=== PATIENT | female | born 1995 | race Caucasian/White ===

== ENCOUNTER → 2018-02-05 14:23 | Outpatient (CLI) | payer OTHER, SELFPAY ==
--- NOTE | 2018-02-05 18:21 | US_ITS ---
STUDY: ULTRASOUND TRANSVAGINAL CLINICAL: Female, 22 years old. Irregular menses TECHNIQUE: Transvaginal COMPARISON: None. FINDINGS: Normal uterine size measuring 5.8 cm in maximal craniocaudal dimension. There are no myometrial masses. Normal endometrial thickness measuring 2 mm. There are no endometrial masses, and there is no fluid in the endometrial cavity. Normal uterine cervix. Normal right ovary, measuring 2.8 x 1.7 x 1.3 cm. There are multiple follicles without a dominant cyst. Left ovary not visualized. There is no free fluid in the pelvis. Polycystic ovary disease: No. US/Transvaginal Non- IMPRESSION: Uterus and right ovary unremarkable. Left ovary not visualized. Electronically Signed: Federico Orellana DO at 21:53 EDT , Service support ,
== END ==
PROVIDERS: Family Provider Pediatrics; PCP Pediatrics; Visit Provider Obstetrics & Gynecology
DX: N92.1 Excessive and frequent menstruation with irregular cycle (principal); N93.0 Postcoital and contact bleeding
CPT/HCPCS: 76830; 87070; 87205; 93976

== ENCOUNTER → 2020-03-11 15:51 | Outpatient (CLI) | payer OTHER, SELFPAY ==
[2020-03-11 13:12] VITALS: BMI 25.7
[2020-03-17 20:44] LABS: HPV Reflexed? NOT INDICATED
== END ==
PROVIDERS: PCP Pediatrics; Referring Provider Obstetrics & Gynecology; Visit Provider Obstetrics & Gynecology
DX: Z12.4 Encounter for screening for malignant neoplasm of cervix (principal)
CPT/HCPCS: 88175; G0145

== ENCOUNTER → 2020-11-30 14:45 | Outpatient (CLI) | payer OTHER, SELFPAY ==
[2020-03-11 13:12] VITALS: BMI 25.7
== END ==
PROVIDERS: Referring Provider Nurse Practitioner Women's Health; Visit Provider Nurse Practitioner Women's Health
DX: Z20.822 Contact with and (suspected) exposure to COVID-19 (principal)
CPT/HCPCS: 87635; C9803; U0005; U0003

== ENCOUNTER 2021-12-30 16:54 | Outpatient (CLI) | payer OTHER, SELFPAY ==
[2022-01-03 12:01] LABS: Chlamydia By Nucleic Acid AMP Negative (Negative)
[2022-01-03 12:25] LABS: Gonococcus By Nucleic Acid AMP Negative (Negative)
== END 2021-12-30 23:59 | disposition home or self-care (01) ==
PROVIDERS: Visit Provider Obstetrics & Gynecology
DX: Z34.90 Encounter for supervision of normal pregnancy, unspecified, unspecified trimester (principal)
CPT/HCPCS: 87086; 87088; 87491; 87591

== ENCOUNTER → 2022-01-25 | Outpatient (CLI) | payer OTHER, SELFPAY ==
[2022-01-25 14:44] LABS: Absolute Lymphocyte Count 2.87 X10^3/uL (0.83-4.51); Absolute Neutrophil Count 7.6 X10^3/uL (2.0-7.7); Basophil# 0.04 X10^3/uL; Basophil% 0.4 % (0-1); Eosinophils% 0.9 % (0-5); Hemoglobin 12.1 g/dL (12.0-15.0); Lymphocyte # 2.87 X10^3/ul (0.83-4.51); Lymphocyte % 25.2 % (19-41); Mean Corp Hgb Conc 33.6 g/dL (32-36); Mean Corpuscular Hgb 29.9 pg (27.0-32.0); Mean Corpuscular Volume 88.9 fL (81-99); Mean Platelet Vol. 10.6 fl (6.2-12.0); Monocyte# 0.69 X10^3/uL; Monocyte% 6.1 % (0-10); NRBC Flagged by Analyzer 0 % (0-5); Neutrophil # 7.64 X10^3/uL (2.7-7.7); Neutrophil % 67.1 % (47-70); Platelet Count 263 K/mm3 (150-450); RBC Distribution Width CV 11.7 % (11.6-14.6); RBC Distribution Width SD 37.6 fl (35.1-43.9); Red Blood Count 4.05 M/mm3 (4.2-5.4); White Blood Count 11.4 K/mm3 (4.4-11.0)
[2022-01-25 15:34] LABS: NATERA MAILED SPECIMEN
[2022-01-25 16:08] LABS: HIV - WCH Non-Reactive (Nonreactive); Hepatitis B Surface Antigen Non-Reactive (Nonreactive); Hepatitis C Antibody Non-Reactive (Nonreactive); Rubella IgG Reactive (Nonreactive); Syphilis Antibodies Non-reactive
== END | disposition home or self-care (01) ==
LOC: PAVLAB 14:25
PROVIDERS: Obstetrics & Gynecology; Referring Provider Obstetrics & Gynecology; Visit Provider Obstetrics & Gynecology
DX: Z34.90 Encounter for supervision of normal pregnancy, unspecified, unspecified trimester (principal)
CPT/HCPCS: 36415; 85025; 86703; 86762; 86780; 86803; 86850; 86900; 86901; 87340

== ENCOUNTER → 2022-04-04 | Outpatient (CLI) | payer OTHER, SELFPAY ==
[2022-04-06 17:17] LABS: Toxoplasma Gondii IgG < 3.0 IU/mL (0.0-7.1)
[2022-04-13 12:39] LABS: CF, Screen Comment: (.); CMV Acute Antibody IgM < 30.0 AU/mL (0.0-29.9); Toxoplasma Gondii IgM < 3.0 AU/mL (0.0-7.9)
== END | disposition home or self-care (01) ==
PROVIDERS: Referring Provider Obstetrics & Gynecology; Visit Provider Obstetrics & Gynecology
DX: O35.8XX0 Maternal care for other (suspected) fetal abnormality and damage, not applicable or unspecified (principal); Z3A.00 Weeks of gestation of pregnancy not specified
CPT/HCPCS: 36415; 81220; 86644; 86645; 86777; 86778

== ENCOUNTER → 2022-06-02 | Outpatient (CLI) | payer OTHER, SELFPAY ==
[2022-06-02 08:45] LABS: Basophil# 0.02 X10^3/uL; Basophil% 0.2 % (0-1); Eosinophil# 0.07 X10^3/uL; Eosinophils% 0.7 % (0-5); Hematocrit 35.4 % (37-47); Hemoglobin 11.8 g/dL (12.0-15.0); Lymphocyte % 24.3 % (19-41); Mean Corp Hgb Conc 33.3 g/dL (32-36); Mean Corpuscular Hgb 30.7 pg (27.0-32.0); Mean Corpuscular Volume 92.2 fL (81-99); Mean Platelet Vol. 10.8 fl (6.2-12.0); Monocyte# 0.61 X10^3/uL; Monocyte% 5.9 % (0-10); NRBC Flagged by Analyzer 0 % (0-5); Neutrophil # 7.04 X10^3/uL (2.7-7.7); Neutrophil % 68.3 % (47-70); Platelet Count 256 K/mm3 (150-450); RBC Distribution Width CV 12.1 % (11.6-14.6); RBC Distribution Width SD 40.8 fl (35.1-43.9); Red Blood Count 3.84 M/mm3 (4.2-5.4); White Blood Count 10.3 K/mm3 (4.4-11.0)
[2022-06-02 09:06] LABS: Glucose Challenge Gest 1H 50g 108 mg/dL (70-140)
== END | disposition home or self-care (01) ==
LOC: LAB 08:24
PROVIDERS: Referring Provider Nurse Practitioner Women's Health; Visit Provider Nurse Practitioner Women's Health
DX: Z34.90 Encounter for supervision of normal pregnancy, unspecified, unspecified trimester (principal)
CPT/HCPCS: 36415; 82950; 85025; 86900; 86901

== ENCOUNTER 2022-07-24 11:50 | Outpatient (CLI) | payer OTHER, SELFPAY ==
[2022-07-24] VITALS (10 sets, daily range): BP systolic 137–173; BP diastolic 80–108; PULSE 64–78; TEMP 37.3
[2022-07-24 12:46] LABS: Creatinine, Urine (random) < 13.00 mg/dL (NO RANGE EST.); Protein, Urine (Random) < 6.0 mg/dL (<11.9)
[2022-07-24 12:57] LABS: Hematocrit 35.7 % (37-47); Hemoglobin 12.7 g/dL (12.0-15.0); Mean Corp Hgb Conc 35.6 g/dL (32-36); Mean Corpuscular Hgb 31.6 pg (27.0-32.0); Mean Corpuscular Volume 88.8 fL (81-99); Mean Platelet Vol. 12.2 fl (6.2-12.0); Platelet Count 235 K/mm3 (150-450); RBC Distribution Width CV 12.6 % (11.6-14.6); RBC Distribution Width SD 40.9 fl (35.1-43.9); Red Blood Count 4.02 M/mm3 (4.2-5.4); White Blood Count 10.7 K/mm3 (4.4-11.0)
[2022-07-24 13:20] LABS: AST(SGOT) 19 U/L (15-37); Alanine Aminotransfer ALT/SGPT 16 U/L (13-56); Creatinine, Serum 0.57 mg/dL (0.55-1.02); EST Glomerular Filtration Rate 134 mL/min (>60); Est Glom Filt Rate - Afr Amer 162 mL/min (>60); Uric Acid 4.5 mg/dL (2.6-6.0)
[2022-07-24] MEDS: Betamethasone/Betamethasone 30 MG/5 ML Vial 12 MG IM (16:24)
--- NOTE | 2022-07-27 18:35 | OB.TRI.PN ---
Progress Notes Date of Service: 07/24/22 Progress Note: Patient presents for triage evaluation secondary to elevated bp FHT: 130 Moderate variability reactive no decelerations category I tracing Sibley: no regualr Contractions Assessment and plan: ghtn nl labs celestone given Reactive NST, reassuring maternal and status patient discharged to home to follow-up []. See problem list details for additional plan information. Laboratory Studies: Laboratory Tests 07/24/22 07/24/22 07/24/22 Range/Units 12:30 12:30 12:20 WBC 10.7 (4.4-11.0) K/mm3 RBC 4.02 L (4.2-5.4) M/mm3 Hgb 12.7 (12.0-15.0) g/dL Hct 35.7 L (37-47) % MCV 88.8 (81-99) fL MCH 31.6 (27.0-32.0) pg MCHC 35.6 (32-36) g/dL RDW Std Deviation 40.9 (35.1-43.9) fl RDW Coeff of Kelly 12.6 (11.6-14.6) % Plt Count 235 (150-450) K/mm3 MPV 12.2 H (6.2-12.0) fl Creatinine 0.57 (0.55-1.02) mg/dL Est GFR (MDRD) Af Amer 162 (>60) mL/min Est GFR (MDRD) Non-Af 134 (>60) mL/min Uric Acid 4.5 (2.6-6.0) mg/dL AST 19 (15-37) U/L ALT 16 (13-56) U/L U Random Total Protein < 6.0 (<11.9) mg/dL Urine Creatinine < 13.00 (NO RANGE EST.) mg/dL Protein/Creatinin Ratio TNP Charges/Coding Procedures Urinary/Genital 52xxx-59xxx: 51681-10 non-stress test Interp
== END 2022-07-24 16:27 | disposition home or self-care (01) ==
LOC: WPOUT 12:00 → WP 12:01
PROVIDERS: Registered Nurse; Visit Provider Obstetrics & Gynecology
DX: O26.899 Other specified pregnancy related conditions, unspecified trimester (principal); R03.0 Elevated blood-pressure reading, without diagnosis of hypertension
CPT/HCPCS: 59025; 59050; 82565; 82570; 84156; 84450; 84460; 84550; 85027; 87081; 96372; 99218; G0378; J0702

== ENCOUNTER → 2022-07-24 | Outpatient (CLI) | payer OTHER, SELFPAY ==
--- NOTE | 2022-07-24 12:50 | US_ITS ---
EXAM: US pelvis, OB greater than 14 weeks. HISTORY: Growth TECHNIQUE: US OB Limited 1 Or More Fetus COMPARISON: None. LIMITATIONS: None. GESTATION: Single live intrauterine . CARDIAC ACTIVITY: 145 bpm PRESENTATION: Breech PLACENTA: Anterior BRENNAN: 11.1 cm AGE/GROWTH BPD: 8.3 cm, 33 weeks 3 days HC: 31.9 cm, 35 weeks 6 days AC: 29.9 cm, 33 weeks 6 days FL: 6.6 cm, 33 weeks 6 days COMPOSITE AGE: 35 weeks 1 day ESTIMATED WEIGHT: 2303 g ABNORMALITIES: No gross abnormalities are identified but the study is a limited emergency study. OVARIES/ADNEXA Right: Not visualized. Left: Not visualized. OTHER: None. CONCLUSION: Single live intrauterine in breech presentation, 35 weeks. Electronically Signed: Caio Bruno MD at 3:41 EDT , US/OB Limited With Biometrics IMPRESSION: undefined
== END | disposition home or self-care (01) ==
LOC: OPUS 12:50
PROVIDERS: Visit Provider Obstetrics & Gynecology
DX: O35.8XX0 Maternal care for other (suspected) fetal abnormality and damage, not applicable or unspecified (principal)
CPT/HCPCS: 76816

== ENCOUNTER 2022-07-25 11:00 | Outpatient (CLI) | payer OTHER, SELFPAY ==
[2022-07-25 11:07] VITALS: BMI 30.2
[2022-07-25 11:24] VITALS: PULSE 69; O2SAT 100
[2022-07-25 11:26] VITALS: BP 152/88; PULSE 77; TEMP 36.6
[2022-07-25] MEDS: Lactated Ringers 1,000 ML 125 ML IV ×2 (11:30→11:47)
[2022-07-25 11:56] VITALS: BP 146/85; PULSE 72
[2022-07-25] MEDS: Betamethasone/Betamethasone 30 MG/5 ML Vial 12 MG IM (15:08)
--- NOTE | 2022-07-25 23:00 | PCM.PN.BLA ---
Progress Note 07/25/22 pt presents to labor and delivery for Celestone injection and rhogam injection see nursing notes for documentation. pt was discharged to home after injection.
== END 2022-07-25 15:45 | disposition home or self-care (01) ==
LOC: WPOUT 11:06 → WP 11:07
PROVIDERS: Visit Provider Obstetrics & Gynecology
DX: O35.8XX0 Maternal care for other (suspected) fetal abnormality and damage, not applicable or unspecified (principal)
CPT/HCPCS: 96372; 96365; 96366 ×3; 59025; 59050; 76815; 86900; 86901; 90384; 99218; J7120; G0378; J0702; J2790

== ENCOUNTER 2022-07-28 10:00 | Inpatient (IN) | payer OTHER, SELFPAY ==
--- NOTE | 2022-07-25 16:17 | OP.PCM_ITS ---
Operative Report Date of Procedure: 07/25/22 Preoperative diagnosis: 36 weeks 4 days, Breech presentation, induced hypertension Postoperative diagnosis : 36 weeks 4 days, Breech presentation, induced hypertension procedure: external cephalic version Obstetricians: Drs. Shira Ann and Liss Haynes Procedure note: The patient was brought to L&D for a Non-stress test and placement of IV catheter. Her blood was typed and screened and she was given Rhogam. A non- stress test showed moderate variability with a rate of 130's, no decelerations, + accelerations 15 bpm x 15 seconds An ultrasound confirmed an adequate BRENNAN of over 10cm. The head was noted to be in the right upper quadrant. Gentle pressure was applied downward on the head while also pushing upward on the presenting parts in the lower uterine segment. After 3 minutes the head was brought down to the right lower qu adrant. A quick break was given and the heart tones were noted to be in the 130's. A second attempt brought the head to the middle of the abdomen at the umbilicus regions. The patient was then placed on the right side and external monitors were placed. A second attempt by Dr. Haynes was also performed and her part will be dictated separate. The patient and fetus tolerated the procedure well, although not completely successful to bring to complete vertex position. Procedures Urinary/Genital 52xxx-59xxx: Other Procedure See Report (External cephalic version )
--- NOTE | 2022-07-27 18:31 | HP.PCM.OB_ITS ---
HPI - General General Date of Admission: 07/28/22 HPI Narrative JEANIE FALCON, is a 27 F who presents for LTCS for breech, GHTN. Maternal Data Information JOSE Calculator Estimated Delivery Date Method Current WG Current Estimate 08/18/22 LMP (Certain) 36w 6d Other Estimates 08/18/22 Ultrasound #1 36w 6d PFSH PFSH Medical History Anxiety Choroid plexus cyst of fetus Rh negative status during Seasonal allergies Home Medications vitamin#30 30 mg iron-10 mg iron-folic acid 1 mg-omg3 capsule cap PO 12/30/21 [History Last Taken Unknown] breast pump #1 ea 06/16/22 [Rx Last Taken Unknown] Allergy/AdvReac Type Severity Reaction Status Date / Time animal dander Allergy unknown Verified 07/24/22 11:30 Family History Grandmother Breast cancer Surgical History H/O shoulder surgery Social History Smoking Status: Never smoker alcohol intake: current details: social substance use type: does not use caffeine: Yes frequency: 3-4 times per week seatbelt use: always do you feel safe at home: Yes additional social history: - Riccardo Patient works for [employer] [place] History 1 Elective abortions Hx Para 0 Spontaneous abortions Hx # Term Pregnancies Ectopic pregnancies Hx # Pregnancies Multiple births # of living children Visit Details Expected Delivery Route/Plan Labor Preferences- CB/BF classes: scheduled labor support person: Riccardo labor intervention preferences: none pain management options preferred: epidural cut cord/dad catch: yes : yes PP control planned: discussed IUD pp discussed possible routes of delivery and associated risks: [] special requests: [] Plans Covid status: discussed Flu vaccine: discussed Tdap vaccine: given Rhogam: given at 28 weeks movement and labor precautions reviewed. LARC form signed: yes Problem list reviewed and updated with the most current plan of care details and appropriate orders placed. Relevant counseling for the gestational age provided. Continue routine care and follow up unless otherwise noted in visit notes/problem list details OB Flowsheet Initial Weight: Not Recorded Date -?-?-?-?-?-?-?-?-?--?-?-?- EGA Weight BP Urine Prot -?-?-?-?-?-?-?-?-?-?-?-?- Glucose FHR FuHt Pres Dilation -?-?-?-?-?-?-?-?-?-?-?-?- Effaced St Visit Note 12/30/21 -?-?-?-?-?-?-?-?-?-?-?-?- 7w 0d 158 lb 124/88 -?-?-?-?-?-?-?-?-?-?-?-?- 135 -?-?-?-?-?-?-?-?-?-?-?-?- SM- CRL 9mm cons with LMP 01/25/22 -?-?-?-?-?-?-?-?-?-?-?-?- 10w 5d 156 lb 142/92 126/81 Negative -?-?-?-?-?-?-?-?-?-?-?-?- Negative 186 -?-?-?-?-?-?-?-?-?-?-?-?- JV- nausea is st ill present but no vomiting. She is going on a road trip and encouraged to drink cold fluids and try dramamine 50 mg during the trip to prevent nausea/vomiting from worsening. 02/21/22 -?-?-?-?-?-?-?-?-?-?-?-?- 14w 4d 155 lb 128/82 Negative -?-?--?-?-?-?-?-?-?-?-?-?- Negative 150 -?-?-?-?-?-?-?-?-?-?-?-?- JV- no complaint s today. healing up well from dog attack 2 weeks ago. S/p abx. goes away for training x 3 weeks starting tomorrow. she has been on antidepressants in the past and plans to restart post . CRL 14 weeks 3 days today 03/20/22 -?-?-?-?-?-?-?-?-?-?-?-?- 18w 3d 156 lb 118/82 Negative -?-?-?-?-?-?-?-?-?-?-?-?- Negative 150 -?-?-?-?-?-?-?-?-?-?-?-?- SM- no vb lof no ctx 04/17/22 -?-?-?-?-?-?-?-?-?-?-?-?- 22w 3d 158 lb 118/76 Negative -?-?-?-?-?-?-?-?-?-?-?-?- Negative 145 -?-?-?-?-?-?-?-?-?-?-?-?- Sm- no vb lof go od fm no regular ctx discussed US results 05/15/22 -?-?-?-?-?-?-?-?-?-?-?-?- 26w 3d 161 lb 4 oz 138/76 126/78 Negative -?-?-?-?-?-?-?-?-?-?-?-?- Negative 156 26 -?-?-?-?-?-?-?-?-?-?-?-?- MH-No VB, LOF. G ood FM. Larc done. 06/02/22 -?-?-?-?-?-?-?-?-?-?-?-?- 29w 0d 164 lb 134/88 Negative -?-?-?-?-?-?-?-?-?-?-?-?- Negative 155 30 -?-?-?-?-?-?-?-?-?-?-?-?- JV- no lof, vagi nal bleeding, or dec fm. Rhogam and glucola today. discussed tdap. 06/16/22 -?-?-?-?-?-?-?-?-?-?-?-?- 31w 0d 170 lb 133/88 -?-?-?-?-?-?-?-?-?-?-?-?- 134 32 -?-?-?-?-?-?-?-?-?-?-?-?- JV- no lof, vagi nal bleeding, or dec fm. flu vaccine today. 06/30/22 -?-?-?-?-?-?-?-?-?-?-?-?- 33w 0d 169 lb 6 oz 130/83 Nega tive -?-?-?-?-?-?-?-?-?-?-?-?- Negative 135 33 Cephalic -?-?-?-?-?-?-?-?-?-?-?-?- JV- no lof, vagi nal bleeding, or dec fm. no complaints. no headaches or blurry vision, no 07/10/22 -?-?-?-?-?-?-?-?-?-?-?-?- 34w 3d 174 lb 134/82 Negative -?-?-?-?-?-?-?-?-?-?-?-?- Negative 140 35 Cephalic -?-?-?-?-?-?-?-?-?-?-?-?- SM- no vb lof go od fm no regular ctx 07/28/22 -?-?-?-?-?-?-?-?-?-?-?-?- 37w 0d -?-?-?-?-?-?-?-?-?-?-?-?- -?-?-?-?-?-?-?-?-?-?-?-?- NST FHR Rate Baby A Baseline: 130 Variability:: Moderate Accelerations:: 15 x 15 Decelerations:: None NST Reactive:: Yes FHR Category:: Category I Uterine Activity:: irregular ROS Constitutional Constitutional: Reports systems reviewed and no addt'l complaints, except as documented Eyes Eyes: Denies change in vision ENT HEENT: Reports systems reviewed and no addt'l complaints, except as documented; Denies headache(s) Cardiovascular Cardiovascular: Reports systems reviewed and no addt'l complaints, except as documented; Denies chest pain or dyspnea Respiratory/Chest Respiratory/Chest: Reports systems reviewed and no addt'l complaints, except as documented Gastrointestinal Gastrointestinal: Reports systems reviewed and no addt'l complaints, except as documented; Denies abdominal pain Genitourinary Genitourinary: Reports systems reviewed and no addt'l complaints, except as documented, contractions Details: present (irregular) and movement Details: present; Denies dysuria or genital lesions Musculoskeletal Musculoskeletal: Reports systems reviewed and no addt'l complaints, except as documented Neurologic Neurologic: Reports systems reviewed and no addt'l complaints, except as documented Endocrine Endocrinology: Reports systems reviewed and no addt'l complaints, except as documented Physical Exam Const alert, oriented x3, no apparent distress and healthy appearing HEENT normocephalic and moist oral mucous membranes Head and Scalp: atraumatic Neck full ROM, no lymphadenopathy, supple and thyroid normal General: trachea midline Lymph Lymphatic: no lymphadenopathy noted Chest inspection of chest normal Resp normal respiratory effort Cardio regular rate GI normal to inspection, nondistended, normoactive bowel sounds, soft to palpation and non-tender Inspection: gravid external exam normal Manual OB Exam: estimated gestational size appropriate Extremity normal to inspection General Extremity: Negative for edema Skin no rashes or lesions noted Neuro no focal motor deficits and deep tendon reflexes 2+ bilaterally Motor Exam: strength 5/5 throughout and clonus absent Psych mental status grossly normal Labs Labs Labs: Blood Type A NEGATIVE Antibody Screen NEGATIVE Hct 35.7 % (37-47) L Hgb 12.7 g/dL (12.0-15.0) Obstetrics US Syphilis Total Ab Non-reactive Rubella IgG Antibody Reactive (Nonreactive) Hep Bs Antigen Non-Reactive (Nonreactive) Chlamydia DNA (ASHLEE) Negative (Negative) Neisseria gonorrhoeae DNA (ASHLEE) Negative (Negative) HIV 1&2 Antibody Non-Reactive (Nonreactive) Glucose 1 Hr 50 gm 108 mg/dL (70-140) Miscellaneous Test Assessment & Plan (1) : QUALIFIERS: Weeks of gestation: 36 weeks Qualified Code(s): Z3A.36 - 36 weeks gestation of COMMENT: 04/24 nl growth, discussed genetic and carrier screening declined AFP screen. NIPT low risk (2) Anxiety: COMMENT: not currently on mediation, encourage counseling/stable. Considering zoloft at 36w (3) Supervision of normal : COMMENT: PRR JOSE 08/18/22 surprise Spouse: Riccardo (4) Family history of defect: COMMENT: FOB niece with multiple defects- facial, heart. MFM anatomy US consider echo. (5) Echogenic focus of bowel, , affecting care of mother, antepartum: COMMENT: echogenic stomach seen, nl NIPT. negative torch titers and cf screen. repeat US growth ordered (6) Rh negative status during : COMMENT: rhogam at 28 weeks and PRN. Rhogam given 06/02/22 (7) Choroid plexus cyst of fetus: COMMENT: still noted on 04/24 growth US (8) Contraception management: COMMENT: Plans mirena IUD 6wk pp (9) Breech presentation: (10) Gestational hypertension: PLAN: Plan admit for LTCS monitor bps
[2022-07-28] VITALS (16 sets, daily range): BP systolic 126–149; BP diastolic 52–87; PULSE 60–71; RESP 13–18; TEMP 36.2–36.7; O2SAT 97–100; BMI 28.8
--- NOTE | 2022-07-28 10:24 | EX.PCM.OBRPT ---
Assessment & Plan (1) Gestational hypertension: COMMENT: Procardia XL 30mg started 07/29/2022 (2) Breech presentation: (3) Contraception management: COMMENT: Plans mirena IUD 6wk pp (4) Choroid plexus cyst of fetus: COMMENT: still noted on 04/24 growth US (5) Echogenic focus of bowel, , affecting care of mother, antepartum: COMMENT: echogenic stomach seen, nl NIPT. negative torch titers and cf screen. repeat US growth ordered (6) Rh negative status during : COMMENT: rhogam at 28 weeks and PRN. Rhogam given 06/02/22 (7) Family history of defect: COMMENT: FOB niece with multiple defects- facial, heart. MFM anatomy US consider echo. (8) Supervision of normal : COMMENT: PRR JOSE 08/18/22 surprise Spouse: Riccardo (9) Anxiety: COMMENT: not currently on mediation, encourage counseling/stable. Considering zoloft at 36w (10) : QUALIFIERS: Weeks of gestation: 36 weeks Qualified Code(s): Z3A.36 - 36 weeks gestation of COMMENT: 04/24 nl growth, discussed genetic and carrier screening declined AFP screen. NIPT low risk Maternal Data Information JOSE Calculator Estimated Delivery Date Method Current WG Current Estimate 08/18/22 LMP (Certain) 37w 4d Other Estimates 08/18/22 Ultrasound #1 37w 4d Final JOSE Source: LMP Details Operative Information Date of Procedure: 07/28/22 Pre-Operative Diagnosis: breech Post-Operative Diagnosis: same Indications for : Breech Classification: Scheduled Procedure Type: low transverse architectural administrative assistant #1: Gabo Jeffries Type of Anesthesia: Spinal Special Medications: none Antibiotic Given: Ancef 2 grams IV x1 Drain: Rico to straight drain Estimated Blood Loss: 1000 Fluids Replaced: crystalloid Findings Description of Procedure: Spinal anesthesia was placed without difficulty. Rico catheter was placed. The patient was placed in the dorsal supine position with leftward tilt. Patient was prepped and draped in the normal sterile fashion. Pfannenstiel skin incision was made with the scalpel and carried through to the underlying layer of fascia with the scalpel. Fascia was nicked in the midline and the incision extended laterally. The rectus bellies were dissected off superiorly and inferiorly with out complication both sharply and bluntly. The peritoneum was entered digitally. The incision was stretched and a low transverse uterine incision was made with the scalpel. The buttox was delivered atraumatically and the right and left legs were swept anteriorly and delivered, followed by the body and the arms which were swept anteriorly and delivered. Gentle traction was placed on the mentum to flex the head which was delivered without complication. . The cord was clamped and cut and the infant was handed off to awaiting nurse. The placenta was delivered with some difficulty, with pieces abnormally growing into the uterus and it being thin and stretched out, but it was removed and noted to have a three-vessel cord. a banjo currett was used to ensure complete removal and TXA given IV to help stabilize the lining. The uterus was exteriorized cleared of all clots and debris, and the incision was closed in a double layer closure using #1 Monocryl. The ovaries and fallopian tubes were noted to be within normal limits. The uterus was returned to the maternal abdomen and gutters were cleared of all clots and debris. The peritoneum was closed with 3-0 Monocryl in a running fashion. Gloves were changed prior to fascial closure. Fascia was closed with 0 PDS in a running fashion. Subcutaneous tissue was copiously irrigated and the skin was closed with 3-0 Monocryl in a subcuticular fashion. Mepilex dressing was applied without complication. Patient was taken to recovery in stable condition. It was discussed with the patient that based on the clinical information obtained during this encounter, combined with her history, at this time I would recommend vaginal or cesareans for future deliveries if further pregnancies are desired. Presentation: Positive for Footling Breech Amniotic Membrane Rupture Type: Artificial Amniotic Fluid Description: Clear Placenta Disposition: [facility] Cord Vessel Description: 3 Vessels Cord Entanglement: Around neck x 2, tight A Gender: Female Delayed Cord Clamping: Yes Complications Risks of Surgery Discussed w/Patient: Bleeding, Infection and Injury to surrounding structure(s) including bowel and bladder Vaginal Delivery Complication Complications: None Admit VTE Documentation VTE Present on Admission: No VTE Mechan Device Prophylaxis: SCD's Procedures Urinary/Genital 52xxx-59xxx: 02511 Delivery [facility]
--- NOTE | 2022-07-28 10:26 | DCINST_ITS ---
Documented by User: Dr. Liss Haynes MD 07/28/22 10:28 Discharge Instructions Diet Discharge Diet: No restrictions Activity Discharge Activity: Return to Normal Activity, May Drive (when pain free and off narcotic pain meds), May Shower and May Take a Tub Bath (in 4 weeks) May resume sexual activity in: 6 weeks Weight Bearing Status: Full weight bearing Lifting Restrictions: under 30 lbs for 6 weeks Dressing / Incision Call your doctor if your incision/area has: Continuous Slow Oozing, Sudden Increased Bleeding, Increased Pain/ Swelling, Increased Redness, Foul Smelling Discharge and - Call your doctor if you observe: Fever of 101 or Higher, Using more than 1 pad per hour, Shortness of breath, Chest pain and Uncontrolled pain Suture Line Care: Avoid Pulling/Pushing and Avoid Pinching/Bending Change Dressing in: 1 week (leave open to air after removed) Remove Dressing in: 1 week (if present) Cleanse incision/area with: Soap & Water and Keep Dressing Clean & Dry Follow Up Care Please Follow Up With: Liss Haynes MD When: Call to make an appointment with your doctor for a postop visit in 2 and 6 weeks. Test Results: Test results from this visit will be discussed in further detail at your follow- up appointment, if applicable. Discharge Plan Admission Admit Date/Time: 07/28/22 10:00 Attending Provider: Liss Haynes Primary Care Provider: Care Rika Gil Primary Discharge Orders/Prescriptions Prescriptions: No Action PNV #[id number] acid-omega3 30 mg iron-10 mg iron-1 mg capsule PO (DME) breast pump Device See Rx Instructions .ROUTE .MEDSUPPLY Qty: 1 0RF Rx Instructions: As directed Referrals / Follow Up: Care Physician,No Primary [Primary Care Provider] - Disposition Disposition (needs filled in before D/C Order can be placed): Home, Self Care Documented by User: Mai Bautista CNM 07/30/22 08:48 Discharge Instructions Follow Up Care When: Call to make an appointment with your doctor for a postop visit in 1 week for BP check, 2 and 6 weeks. Discharge Plan Admission Admit Date/Time: 07/28/22 10:00 Attending Provider: Liss Haynes Primary Care Provider: Rika Tijerina Primary Discharge Orders/Prescriptions Prescriptions: No Action PNV #[id number] acid-omega3 30 mg iron-10 mg iron-1 mg capsule PO (DME) breast pump Device See Rx Instructions .ROUTE .MEDSUPPLY Qty: 1 0RF Rx Instructions: As directed Referrals / Follow Up: Care Physician,No Primary [Primary Care Provider] - Disposition Disposition (needs filled in before D/C Order can be placed): Home, Self Care
[2022-07-28] MEDS: Lactated Ringers 1,000 ML 999 ML IV (10:41)
[2022-07-28 10:42] LABS: Absolute Lymphocyte Count 3.66 X10^3/uL (0.83-4.51); Basophil# 0.05 X10^3/uL; Basophil% 0.4 % (0-1); Eosinophil# 0.05 X10^3/uL; Eosinophils% 0.4 % (0-5); Hematocrit 34.5 % (37-47); Hemoglobin 11.8 g/dL (12.0-15.0); Lymphocyte # 3.66 X10^3/ul (0.83-4.51); Lymphocyte % 31.6 % (19-41); Mean Corp Hgb Conc 34.2 g/dL (32-36); Mean Corpuscular Hgb 30.8 pg (27.0-32.0); Mean Corpuscular Volume 90.1 fL (81-99); Mean Platelet Vol. 12.3 fl (6.2-12.0); Monocyte# 0.79 X10^3/uL; Monocyte% 6.8 % (0-10); NRBC Flagged by Analyzer 0 % (0-5); Neutrophil % 60.4 % (47-70); Platelet Count 230 K/mm3 (150-450); RBC Distribution Width CV 12.9 % (11.6-14.6); RBC Distribution Width SD 41.7 fl (35.1-43.9); Red Blood Count 3.83 M/mm3 (4.2-5.4); White Blood Count 11.6 K/mm3 (4.4-11.0)
[2022-07-28] MEDS: Lactated Ringers 1,000 ML 150 ML IV (11:20)
[2022-07-28] MEDS: Acetaminophen 500 MG Tablet 1000 MG PO ×2 (11:44→19:26)
[2022-07-28] MEDS: Sodium Citrate/Citric Acid 30 ML UDC PO (11:44)
[2022-07-28] MEDS: Cefazolin 2 GM in 0.9% Normal Saline 100 ML IV (11:59)
--- NOTE | 2022-07-28 12:15 | PLAC_PTH ---
PATIENT: JEANIE FALCON LOC: [facility] U#:[id number] AGE/SX: 27/F ROOM: WP006 RE07/28/[address]: Dr. Liss Haynes MD : 1995 BED: 1 DIS: 07/30/2022 SPEC #: [id number] RECD: 07/28/22 14:01 STATUS: DAVID ROBEL #: [id number] IRLANDA: 07/28/22 12:[address]: Liss Haynes DEPT: SURGICAL PATHOLOGY RECD BY: Sandra Fitzpatrick ENTERED: 07/31/22 08:41 SP TYPE: PLACENTA OTHR DR: No Primary Care Phys Tissues: Placenta, NOS Procedures: Surgery Specimen Level V HEADER OPERATION: Primary section PRE-OP DIAGNOSIS: Hemorrhage TISSUE SUBMITTED: Placenta MICROSCOPIC DIAGNOSIS Placenta: Placental disc - third trimester placenta, fragmented (387 gm). - A fibrinous plaque, surface (2.8 cm in greatest dimension). - A focal area of intraparenchymal hemorrhage (1.0 cm in greatest dimension). Membranes - no pathologic diagnosis. Umbilical cord - three blood vessels and no pathologic diagnosis. SJ:cordell 08/03/2022 MICROSCOPIC DESCRIPTION Slides are reviewed. GROSS DESCRIPTION SPECIMEN: PLACENTA / CLINICAL INFORMATION: A. Weight: 2.04 kg B. Gestational Age: 37 weeks C. Sex: Female One detached fragment of placental tissue is also noted. PLACENTAL WEIGHT (POST FIXATION): The body of the placenta including detached fragment weight in aggregate 387 gm PLACENTAL DIMENSIONS: The body of the placenta measures 16 x 15 x 3 cm and detached fragment measures 5 x 2.5 x 1 cm PLACENTAL SHAPE: Fragmented including one detached fragment. The completeness of placenta cannot be assessed due to fragmented nature of the placenta. PLACENTAL WEIGHT FOR GESTATIONAL AGE: Within 10-99th percentile MEMBRANES - Present A. Insertion: Marginal B. Site of rupture from edge: Membranes are fragmented and distance of rupture cannot be assessed. C. Color of membrane: Byrne-gutierrez D. Abnormalities: None UMBILICAL CORD - Present A. Color: Byrne-gutierrez B. Insertion: Paracentral C. Length: 45 cm D. Diameter: 1 cm E. Number of vessels: Three F. Abnormalities: None PLACENTAL DISC - Present A. Color of surface: Byrne-gutierrez B. surface abnormalities: None C. Maternal cotyledons: Intact with minimal tears D. Attached retro placental clot: No clot E. Cut surface: Dark red and spongy F. Lesions: Sections reveal a central byrne, indurated lesion measuring 1 cm in greatest dimension. A second lesion close to surface is also noted measuring 2.8 cm in greatest dimension. G. Separate clot: Absent SECTIONS SUBMITTED: 1. Membrane roll 2. Cord, maternal end, larger lesion close to surface 3. Cord, end, larger lesion close to surface 4. Placental disc, and maternal surfaces, smaller lesion 5. Placental disc, and maternal surfaces 6. Placental disc, and maternal surfaces SJ:cordell 08/01/2022 7. More sections of membrane . / AM:cordell 08/02/2022 TC:5 CPT: 49673
[2022-07-28] MEDS: Methylergonovine 0.2 MG/ML Ampul IM (12:20)
[2022-07-28] MEDS: Oxytocin 15 Units/NS 250ml 15 UNITS/250 ML IV.SOLN 83 UNITS IV (13:31)
[2022-07-28] MEDS: Ketorolac 30 MG/ML Syringe IV ×2 (13:36→19:26)
--- NOTE | 2022-07-28 15:52 | NURSING ---
Report given to Estelita Cho RN. She will assume care at this time.
[2022-07-28] MEDS: Lactated Ringers 1,000 ML 100 ML IV (16:47)
--- NOTE | 2022-07-28 21:54 | NURSING ---
Pt ambulated for first time since delivery. Walked from bed to door and back. Tolerated well.
[2022-07-29] MEDS: Acetaminophen 500 MG Tablet 1000 MG PO ×4 (01:42→19:35)
[2022-07-29] MEDS: Ketorolac 30 MG/ML Syringe IV ×2 (01:43→07:35)
[2022-07-29] MEDS: 0.9% Saline Lock 10 ML Syringe IV ×2 (01:43→07:36)
[2022-07-29 03:59] VITALS: BP 130/88; PULSE 67; RESP 16; TEMP 36.2; O2SAT 97
[2022-07-29 06:09] LABS: Hematocrit 27.5 % (37-47); Hemoglobin 9.4 g/dL (12.0-15.0); Mean Corp Hgb Conc 34.2 g/dL (32-36); Mean Corpuscular Hgb 31.1 pg (27.0-32.0); Mean Corpuscular Volume 91.1 fL (81-99); Platelet Count 166 K/mm3 (150-450); RBC Distribution Width CV 12.9 % (11.6-14.6); RBC Distribution Width SD 42.1 fl (35.1-43.9); Red Blood Count 3.02 M/mm3 (4.2-5.4); White Blood Count 14.4 K/mm3 (4.4-11.0)
[2022-07-29 08:55] VITALS: BP 140/96; PULSE 61; RESP 16; TEMP 36.9; O2SAT 98
--- NOTE | 2022-07-29 09:27 | PCM.PN.OB ---
Subjective Subjective Patient doing well without complaints. Tolerating PO. Ambulating and voiding without difficulty. Feeding well. Denies chest pain, shortness of breath, calf pain/swelling, fevers, chills, lightheadedness. denies headaches, visual changes, RUQ pain. Objective Data Objective Data BP review in past 24 hours 129-149/52-96. mostly 130s-low 140s/70-80's. Vital Signs: Vital Signs Temp Pulse Resp BP Pulse Ox O2 Del Method 97.1 F L 67 16 130/88 H 97 Room Air 07/29/22 03:59 07/29/22 03:59 07/29/22 03:59 07/29/22 03:59 07/29/22 03:59 07/29/22 03:59 Oxygen Delivery Method Room Air Weight: 167 lb 8.821 oz Body Mass Index (BMI) 28.8 Intake & Output: Intake and Output for Last 24 Hours 07/27/22 07/28/22 07/29/22 23:59 23:59 23:59 Intake Total 1700.18 / 1700.18 Output Total 1300 / 1300 1949 / 1949 Balance 400.18 / 400.18 -1950 / Lab / Micro Data Attestation: I reviewed the patient's lab results. Result Diagrams: 07/29/22 05:57 Labs: Laboratory Results - last 24 hr 07/28/22 10:30: WBC 11.6 H, RBC 3.83 L, Hgb 11.8 L, Hct 34.5 L, MCV 90.1, MCH 30.8, MCHC 34.2, RDW Std Deviation 41.7, RDW Coeff of Kelly 12.9, Plt Count 230, MPV 12.3 H, Immature Gran % (Auto) 0.400, Neut % (Auto) 60.4, Lymph % (Auto) 31.6, Troup % (Auto) 6.8, Eos % (Auto) 0.4, Baso % (Auto) 0.4, Absolute Neuts (auto) 7.0, Absolute Lymphs (auto) 3.66, Nucleated RBC % 0 07/28/22 10:30: Blood Type Cancelled, Antibody Screen Cancelled 07/28/22 10:55: Blood Type A NEGATIVE, Antibody Screen QUANTITATIVE ANALYST 07/28/22 10:55: Antibody Screen NEGATIVE 07/28/22 15:00: Screen NEGATIVE, Baby's Blood Type B POSITIVE, Baby's SAUMYA NEGATIVE 07/29/22 05:57: WBC 14.4 H, RBC 3.02 L, Hgb 9.4 L, Hct 27.5 L, MCV 91.1, MCH 31.1, MCHC 34.2, RDW Std Deviation 42.1, RDW Coeff of Kelly 12.9, Plt Count 166, MPV 12.0 Micro: Microbiology 07/28/22 10:30 Nasal Secretion SARS-CoV-2 Antigen (Rapid) - Final ROS Constitutional Constitutional: Denies systems reviewed and no addt'l complaints, except as documented, as per HPI, anorexia, body ache(s), change in weight, chills, daytime sleepiness, difficulty sleeping, excessive sweating, fatigue, fever(s), frequent falls, headache(s), increased appetite, lethargy, malaise, night sweats, poor appetite, snoring, stops breathing during sleep, weakness, weight gain, weight loss or other Cardiovascular Cardiovascular: Reports none Respiratory/Chest Respiratory/Chest: Reports none Gastrointestinal Gastrointestinal: Reports none; Denies abdominal pain, change in bowel habits or change in stool character Genitourinary Genitourinary: Denies dysuria, low back pain, urinary frequency, urinary hesitancy, urinary incontinence or urinary urgency Integumentary Integumentary: Reports none Neurologic Neurologic: Reports none Psychiatric Psychiatric: Reports none Endocrine Endocrinology: Reports none Hematologic/Lymphatic Hematologic/Lymphatic: Reports none Allergic/Immunologic Allergic/Immunologic: Reports none Physical Exam Const alert and no apparent distress HEENT normocephalic Eyes PERRL Neck full ROM Chest inspection of chest normal and palpation of chest normal Nipple/Areola: nipple discharge other (lactating) Resp normal respiratory effort, normal air movement and no retractions Cardio regular rate GI soft to palpation Palpation: other Other Details: fundus 1 below U, firm. Speculum Exam - Vagina: vaginal bleeding scant (lochia, non odorous) Extremity normal to inspection and full ROM Skin General Skin Exam: other mepilex dressing intact, drainage as marked. Neuro oriented x3, CN's II-XII intact bilaterally and deep tendon reflexes 2+ bilaterally Motor Exam: strength 5/5 throughout, muscle tone normal throughout and clonus absent Psych mental status grossly normal and thought process normal Assessment & Plan (1) Gestational hypertension: PLAN: -continue to monitor BP q4 hours -if consistently above 140/90s will consider starting PO medications -Dr. Ann updated on assessment, VS and agrees with above plan. -continues to be a co-management patient (2) delivery delivered: COMMENT: 37 LTCS breech GHTN (3) Rh negative status during : COMMENT: rhogam at 28 weeks and PRN. Rhogam given 06/02/22 (4) Anxiety: COMMENT: not currently on mediation, encourage counseling/stable. Considering zoloft at 36w PLAN: Plan s/p LTCS PPD # 1 1. routine post care 2. breast feeding- support given 3. rh positive 4. rubella immune
[2022-07-29 13:36] VITALS: BP 161/82; PULSE 70; RESP 16; TEMP 37.2; O2SAT 99
[2022-07-29] MEDS: Senna/Docusate Sodium 1 Tablet PO (13:38)
--- NOTE | 2022-07-29 13:45 | NURSING ---
Phone call received from Dr. Ann in regards to pt BP. MD aware of elevated BP 161/96. Plan is to start PO Procardia XL 30mg Daily now and then recheck BP 2 hours after medication administered. MD did not want second BP checked 15 minutes after initial elevated one.
[2022-07-29] MEDS: NIFEdipine 30 MG Tablet PO (14:02)
[2022-07-29] MEDS: Naproxen 500 MG Tablet PO ×2 (15:46→23:35)
[2022-07-29] MEDS: Ferrous Sulfate 325 MG Tablet PO (15:47)
[2022-07-29 16:07] VITALS: BP 138/74; PULSE 70; RESP 16; TEMP 36.9; O2SAT 98
--- NOTE | 2022-07-29 17:05 | CASEMGMT ---
SW Note Referral Source: [facility] LEVAR Reason for Consult: History of anxiety SW met with patient's RN Prachi who voiced no concerns regarding MOB and FOB. SW met with MOB and her , Riccardo in the room. MOB gave verbal consent to speak to her in the presence of the FOB. FOB was holding the nb during the assessment. Mom: Luz Elena PNC: [place] Control: IUD PP Baby: Radha : 07/28/22 Apgars: 9/10 Weight: 4 lbs 12 ounces Pediatrican: Dr. Franks Breast feeding which she reported was going good. No other children. MOB and FOB reports that the house is 10 minutes away and is adequate for them. Transportation: MOB reports she has access and is able to drive when medically clear. Supplies: MOB reports that she has all the nb supplies including pack n play, bassinet, crib, diapers, clothes and car seat. Supports: BLU reports that ROBERTA is a support as well as her family and friends who are local. Education Level: MOB reports she graduated from high school and college. No learning issues. 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 SHe plans to take 4 months off work and then a combination of family, including grandparents will be caring for the nb. Agency Involvement: MOB denied JFS, WIC, HMG, Counseling, Legal or CSB issues FOB: Riccardo Time Together: 6 years Involved at : FOB will be involved with the nb. Employment: FOJerald is employed at the [employer]. He gets 6 weeks off work FOB has no other children. FOB Mental Health/AOD/ Domestic Violence: FOB denied. Maternal MH History: MOB reports history of anxiety. She had taken Celexa prior to the . MOB said that the last time she took medication was when the FOB was deployed and when he came home she was fine. MOB said that she has taken Celexa on and off since college. MOB reports she has never had counseling. MOB said that she has spoken to her MDShaheen about restarting medication. MOB said that she is not sure what they will use Celexa or Zoloft. MOB denied any SI or HI. MOb denied any psychiatric hospitalization. MOB and FOB were educated on PPD, Shaken Baby Syndrome and safe sleeping. MOB reports that she does not smoke and drinks alcohol socially when she is not . Plan: Home at discharge Jessica CASTLE
[2022-07-29 20:49] VITALS: BP 123/83; PULSE 74; RESP 16; TEMP 36.8; O2SAT 97
[2022-07-30] MEDS: Acetaminophen 500 MG Tablet 1000 MG PO ×2 (01:45→07:48)
[2022-07-30 01:51] VITALS: BP 122/83; PULSE 72; RESP 18; TEMP 36.4; O2SAT 97
[2022-07-30] MEDS: Naproxen 500 MG Tablet PO (06:35)
[2022-07-30 06:53] LABS: Hematocrit 32.6 % (37-47); Hemoglobin 10.8 g/dL (12.0-15.0); Mean Corp Hgb Conc 33.1 g/dL (32-36); Mean Corpuscular Hgb 30.6 pg (27.0-32.0); Mean Corpuscular Volume 92.4 fL (81-99); Mean Platelet Vol. 11.6 fl (6.2-12.0); Platelet Count 224 K/mm3 (150-450); RBC Distribution Width CV 13.2 % (11.6-14.6); RBC Distribution Width SD 44.1 fl (35.1-43.9); Red Blood Count 3.53 M/mm3 (4.2-5.4)
[2022-07-30] MEDS: Ferrous Sulfate 325 MG Tablet PO (07:48)
[2022-07-30 08:12] VITALS: BP 128/83; PULSE 99; RESP 16; TEMP 36.9; O2SAT 98
--- NOTE | 2022-07-30 08:40 | PCM.PN.OB ---
Subjective Subjective Patient doing well without complaints. Tolerating PO. Ambulating and voiding without difficulty. Feeding well. Denies chest pain, shortness of breath, calf pain/swelling, fevers, chills, lightheadedness.Denies headaches, epigastric pain, or visual changes. pain well managed with tylenol and naproxen. Objective Data Objective Data Vital Signs: Vital Signs Temp Pulse Resp BP Pulse Ox O2 Del Method 98.5 F 99 16 128/83 H 98 Room Air 07/30/22 08:12 07/30/22 08:12 07/30/22 08:12 07/30/22 08:12 07/30/22 08:12 07/30/22 08:12 Oxygen Delivery Method Room Air Weight: 167 lb 8.821 oz Body Mass Index (BMI) 28.8 Intake & Output: Intake and Output for Last 24 Hours 07/28/22 07/29/22 07/30/22 23:59 23:59 22:59 Intake Total 1700.18 / 1700.18 Output Total 1300 / 1300 1949 / 1949 Balance 400.18 / 400.18 -1949 Lab / Micro Data Result Diagrams: 07/30/22 06:43 Labs: Laboratory Results - last 24 hr 07/30/22 06:43: WBC 15.0 H, RBC 3.53 L, Hgb 10.8 L, Hct 32.6 L, MCV 92.4, MCH 30.6, MCHC 33.1, RDW Std Deviation 44.1 H, RDW Coeff of Kelly 13.2, Plt Count 224, MPV 11.6 Micro: Microbiology 07/28/22 10:30 Nasal Secretion SARS-CoV-2 Antigen (Rapid) - Final ROS Constitutional Constitutional: Denies body ache(s), chills, fever(s), headache(s), poor appetite or weakness Cardiovascular Cardiovascular: Reports none Respiratory/Chest Respiratory/Chest: Reports none Gastrointestinal Gastrointestinal: Denies abdominal pain, diarrhea, nausea or vomiting Genitourinary Genitourinary: Denies urinary frequency, urinary hesitancy, urinary incontinence or urinary urgency Integumentary Integumentary: Reports none Psychiatric Psychiatric: Reports none Endocrine Endocrinology: Reports none Hematologic/Lymphatic Hematologic/Lymphatic: Reports anemia Allergic/Immunologic Allergic/Immunologic: Reports none Physical Exam Const alert, oriented x3 and no apparent distress HEENT normocephalic Eyes PERRL Neck full ROM Chest inspection of chest normal Nipple/Areola: nipples/areola normal and nipple discharge other (lactating) Resp normal respiratory effort, normal air movement and no retractions Cardio regular rate GI soft to palpation and non-tender Assessment & Plan (1) Anxiety: COMMENT: not currently on mediation, encourage counseling/stable. Considering zoloft at 36w (2) Gestational hypertension: COMMENT: Procardia XL 30mg started 07/29/2022 (3) delivery delivered: COMMENT: 37 LTCS breech GHTN SM (4) Rh negative status during : COMMENT: rhogam at 28 weeks and PRN. Rhogam given 06/02/22 PLAN: Plan s/p LTCS PPD # 3 1. routine post care 2. breast feeding- support given 3. rh positive 4. rubella immune 5. d/c home today Baby name: Jabari. delivery details: c/s for breech presentation. additional follow up needed:1 week BP check, 2 weeks and 6 weeks. *please call patient 1-3 days after discharge from hospital to see how she is doing with recovery. please complete episode, update obstetric and surgical history, and inform civil preparedness officer of delivery. Please cancel any other appointments and call her to schedule her 6 week visit. Ask if she will want an IUD inserted at that appointment and if so please obtain a prior authorization approval. thank you.
[2022-07-30] MEDS: Senna/Docusate Sodium 1 Tablet PO (10:01)
[2022-07-30] MEDS: NIFEdipine 30 MG Tablet PO (10:01)
[2022-08-03 15:28] LABS: Pathology Specimen OB SEE PATHOLOGY REPORT
== END 2022-07-30 12:24 | disposition home or self-care (01) | DRG 787 ==
PROVIDERS: Obstetrics & Gynecology; Admitting Provider Obstetrics & Gynecology; Visit Provider Obstetrics & Gynecology
PROC: 10D00Z1 Extraction of Products of Conception, Low, Open Approach (ICD-10-PCS; CPT 59514; principal; 2022-07-28 11:45)
DX: O32.1XX0 Maternal care for breech presentation, not applicable or unspecified (principal); O99.354 Diseases of the nervous system complicating childbirth; G93.0 Cerebral cysts; F41.9 Anxiety disorder, unspecified; Z3A.36 36 weeks gestation of pregnancy; O99.344 Other mental disorders complicating childbirth; Z37.0 Single live birth; O13.4 Gestational [pregnancy-induced] hypertension without significant proteinuria, complicating childbirth; Z82.79 Family history of other congenital malformations, deformations and chromosomal abnormalities; Z67.91 Unspecified blood type, Rh negative
CPT/HCPCS: 59025; 59050; 85025; 85027; 85461; 86850; 86900; 86901; 87426; 88307; 99218; 99251; J7120; A4216; G0378; G0463; J2405; J2790

== ENCOUNTER → 2022-09-13 | Outpatient (CLI) | payer OTHER, SELFPAY ==
[2022-09-21 21:08] LABS: HPV Reflexed? NOT INDICATED
== END | disposition home or self-care (01) ==
PROVIDERS: Visit Provider Obstetrics & Gynecology
DX: Z12.4 Encounter for screening for malignant neoplasm of cervix (principal)
CPT/HCPCS: 88175; G0145

== ENCOUNTER → 2024-05-21 | Outpatient (CLI) | payer OTHER, SELFPAY ==
[2024-05-21 07:44] LABS: Absolute Lymphocyte Count 2.43 X10^3/uL (0.83-4.51); Basophil# 0.06 X10^3/uL; Eosinophil# 0.21 X10^3/uL; Eosinophils% 3.4 % (0-5); Hematocrit 37.2 % (37-47); Hemoglobin 12.4 g/dL (12.0-15.0); Lymphocyte # 2.43 X10^3/ul (0.83-4.51); Lymphocyte % 39.1 % (19-41); Mean Corp Hgb Conc 33.3 g/dL (32-36); Mean Corpuscular Hgb 30.5 pg (27.0-32.0); Mean Corpuscular Volume 91.6 fL (81-99); Mean Platelet Vol. 10.4 fl (6.2-12.0); Monocyte% 8.1 % (0-10); NRBC Flagged by Analyzer 0 % (0-5); Neutrophil % 48.2 % (47-70); Platelet Count 304 K/mm3 (150-450); RBC Distribution Width CV 11.9 % (11.6-14.6); RBC Distribution Width SD 39.8 fl (35.1-43.9); Red Blood Count 4.06 M/mm3 (4.2-5.4); White Blood Count 6.2 K/mm3 (4.4-11.0)
[2024-05-21 08:32] LABS: hCG Titer Quant., Serum 5715 mIU/mL (1-3)
== END | disposition home or self-care (01) ==
PROVIDERS: PCP Internal Medicine; Referring Provider Nurse Practitioner Women's Health; Visit Provider Nurse Practitioner Women's Health
DX: O20.9 Hemorrhage in early pregnancy, unspecified (principal); Z3A.00 Weeks of gestation of pregnancy not specified
CPT/HCPCS: 36415; 84702; 85025; 86850; 86900; 86901

== ENCOUNTER → 2024-05-23 | Outpatient (CLI) | payer OTHER, SELFPAY ==
[2024-05-23 10:01] LABS: hCG Titer Quant., Serum 9053 mIU/mL (1-3)
== END | disposition home or self-care (01) ==
LOC: LAB 08:05
PROVIDERS: PCP Internal Medicine; Referring Provider Nurse Practitioner Women's Health; Visit Provider Nurse Practitioner Women's Health
DX: O20.9 Hemorrhage in early pregnancy, unspecified (principal); Z3A.00 Weeks of gestation of pregnancy not specified
CPT/HCPCS: 36415; 84702

== ENCOUNTER → 2024-06-04 | Outpatient (CLI) | payer OTHER, SELFPAY ==
[2024-06-07 07:12] LABS: Chlamydia By Nucleic Acid AMP Negative (Negative); Gonococcus By Nucleic Acid AMP Negative (Negative)
== END | disposition home or self-care (01) ==
LOC: LABSPEC 16:29
PROVIDERS: PCP Internal Medicine; Referring Provider Obstetrics & Gynecology; Visit Provider Obstetrics & Gynecology
DX: O09.91 Supervision of high risk pregnancy, unspecified, first trimester (principal); Z3A.00 Weeks of gestation of pregnancy not specified
CPT/HCPCS: 87086; 87088; 87491; 87591

== ENCOUNTER → 2024-06-27 | Outpatient (CLI) | payer OTHER, SELFPAY ==
[2024-06-27 12:46] LABS: Absolute Lymphocyte Count 2.11 X10^3/uL (0.83-4.51); Absolute Neutrophil Count 5.7 X10^3/uL (2.0-7.7); Basophil# 0.05 X10^3/uL; Basophil% 0.6 % (0-1); Eosinophil# 0.18 X10^3/uL; Eosinophils% 2.1 % (0-5); Hematocrit 34.4 % (37-47); Hemoglobin 11.3 g/dL (12.0-15.0); Lymphocyte # 2.11 X10^3/ul (0.83-4.51); Lymphocyte % 24.8 % (19-41); Mean Corp Hgb Conc 32.8 g/dL (32-36); Mean Corpuscular Hgb 29.9 pg (27.0-32.0); Mean Platelet Vol. 11.1 fl (6.2-12.0); Monocyte# 0.46 X10^3/uL; Monocyte% 5.4 % (0-10); NRBC Flagged by Analyzer 0 % (0-5); Neutrophil # 5.66 X10^3/uL (2.7-7.7); Neutrophil % 66.6 % (47-70); Platelet Count 259 K/mm3 (150-450); RBC Distribution Width CV 11.7 % (11.6-14.6); RBC Distribution Width SD 39.1 fl (35.1-43.9); Red Blood Count 3.78 M/mm3 (4.2-5.4); White Blood Count 8.5 K/mm3 (4.4-11.0)
[2024-06-27 13:07] LABS: Protein, Urine (Random) < 6.0 mg/dL (<11.9)
[2024-06-27 13:20] LABS: AST(SGOT) 13 U/L (15-37); Alanine Aminotransfer ALT/SGPT 15 U/L (13-56); Albumin, Serum 3.9 g/dL (3.2-5.0); Alkaline Phosphatase 35 U/L (45-117); Anion Gap 8 (5-15); BUN 5 mg/dL (7-18); BUN/Creat Ratio 8.8 RATIO (10-20); Calcium,Total 9.1 mg/dL (8.5-10.1); Chloride 105 mmol/L (98-107); Creatinine, Serum 0.57 mg/dL (0.55-1.02); EST Glomerular Filtration Rate 132 mL/min (>60); Est Glom Filt Rate - Afr Amer 160 mL/min (>60); Globulin 3.8 g/dL (2.2-4.2); Glucose 86 mg/dL (74-106); Potassium 3.3 mmol/L (3.5-5.1); Protein, Total 7.7 g/dL (6.4-8.2); Sodium Level 136 mmol/L (136-145)
[2024-06-27 14:40] LABS: HIV - WCH Non-Reactive (Nonreactive); Hepatitis B Surface Antigen Non-Reactive (Nonreactive); Hepatitis C Antibody Non-Reactive (Nonreactive); Rubella IgG Reactive (Nonreactive); Syphilis Antibodies Non-reactive
[2024-06-27 14:40] LABS: Creatinine, Urine (random) < 13.00 mg/dL (NO RANGE EST.); Protein, Urine (Random) < 6.0 mg/dL (<11.9)
== END | disposition home or self-care (01) ==
PROVIDERS: PCP Internal Medicine; Referring Provider Obstetrics & Gynecology; Visit Provider Obstetrics & Gynecology
DX: O09.91 Supervision of high risk pregnancy, unspecified, first trimester (principal); Z3A.00 Weeks of gestation of pregnancy not specified
CPT/HCPCS: 36415; 80053; 82570; 84156; 85025; 86703; 86762; 86780; 86803; 86850; 86870; 86900; 86901; 87340

== ENCOUNTER → 2024-07-07 | Outpatient (CLI) | payer OTHER, SELFPAY | END | disposition home or self-care (01) | PROVIDERS: Obstetrics & Gynecology; PCP Internal Medicine; Referring Provider Nurse Practitioner Women's Health; Visit Provider Nurse Practitioner Women's Health | DX: O36.0190 Maternal care for anti-D [Rh] antibodies, unspecified trimester, not applicable or unspecified (principal); O26.899 Other specified pregnancy related conditions, unspecified trimester; Z3A.00 Weeks of gestation of pregnancy not specified | CPT/HCPCS: 36415 ==

== ENCOUNTER → 2024-08-18 | Outpatient (CLI) | payer OTHER, SELFPAY | END | disposition home or self-care (01) | LOC: LABSPEC 09:04 | PROVIDERS: PCP Internal Medicine; Referring Provider Obstetrics & Gynecology; Visit Provider Obstetrics & Gynecology | DX: R30.0 Dysuria (principal) | CPT/HCPCS: 87086; 87088 ==

== ENCOUNTER → 2024-08-19 | Outpatient (CLI) | payer OTHER, SELFPAY ==
--- NOTE | 2024-08-19 12:18 | US_ITS ---
STUDY: RENAL ULTRASOUND - COMPLETE REASON FOR EXAM: Female, 29 years old. flank pain -- pt 18 weeks 5 days preg TECHNIQUE: Ultrasound evaluation of the kidneys was performed with real-time and static winchester-scale imaging. COMPARISON: None. FINDINGS: RIGHT KIDNEY: Normal location of the right kidney, which is normal in size. The right kidney measures 11.6 cm. There is a normal cortex of the right kidney. The renal cortex measures 1.5 cm. There is no right renal mass or cyst. There are no right renal calculi. There is no right hydronephrosis. LEFT KIDNEY: Normal location of the left kidney, which is normal in size. The left kidney measures 11.3 cm. There is a normal cortex of the left kidney. The renal cortex measures 1.8 cm. There is no left renal mass or cyst. There are no left renal calculi. There is no left hydronephrosis. BLADDER: The distended urinary bladder has a volume of 600 ml. The empty urinary bladder has a volume of 35 ml. There is a normal wall thickness of the distended urinary bladder. There is no demonstrated mass within the urinary bladder. There are no demonstrated bladder calculi. US/Kidney and Bladder IMPRESSION: Normal ultrasound of the kidneys and urinary bladder. Electronically Signed: Raz Mtz MD at 23:08 EST ,
== END | disposition home or self-care (01) ==
LOC: US 12:18
PROVIDERS: PCP Internal Medicine; Referring Provider Obstetrics & Gynecology; Visit Provider Obstetrics & Gynecology
DX: R10.9 Unspecified abdominal pain (principal)
CPT/HCPCS: 76770

== ENCOUNTER → 2024-10-23 | Outpatient (CLI) | payer OTHER, SELFPAY ==
[2024-10-23 12:07] LABS: Absolute Lymphocyte Count 1.77 X10^3/uL (0.83-4.51); Absolute Neutrophil Count 6.3 X10^3/uL (2.0-7.7); Basophil# 0.03 X10^3/uL; Basophil% 0.3 % (0-1); Eosinophil# 0.12 X10^3/uL; Eosinophils% 1.4 % (0-5); Hematocrit 35.2 % (37-47); Hemoglobin 11.5 g/dL (12.0-15.0); Lymphocyte # 1.77 X10^3/ul (0.83-4.51); Lymphocyte % 20.1 % (19-41); Mean Corp Hgb Conc 32.7 g/dL (32-36); Mean Corpuscular Hgb 30.7 pg (27.0-32.0); Mean Corpuscular Volume 94.1 fL (81-99); Mean Platelet Vol. 10.4 fl (6.2-12.0); Monocyte# 0.52 X10^3/uL; Monocyte% 5.9 % (0-10); NRBC Flagged by Analyzer 0 % (0-5); Neutrophil # 6.32 X10^3/uL (2.7-7.7); Neutrophil % 71.8 % (47-70); Platelet Count 255 K/mm3 (150-450); RBC Distribution Width CV 12.2 % (11.6-14.6); RBC Distribution Width SD 42.5 fl (35.1-43.9); Red Blood Count 3.74 M/mm3 (4.2-5.4); White Blood Count 8.8 K/mm3 (4.4-11.0)
[2024-10-23 12:21] LABS: Glucose Challenge Gest 1H 50g 91 mg/dL (70-140)
[2024-10-23 12:55] LABS: HIV - WCH Non-Reactive (Nonreactive); Syphilis Antibodies Non-reactive
== END | disposition home or self-care (01) ==
LOC: BWCLAB 10:14
PROVIDERS: Obstetrics & Gynecology; PCP Internal Medicine; Referring Provider Obstetrics & Gynecology; Visit Provider Obstetrics & Gynecology
DX: O09.91 Supervision of high risk pregnancy, unspecified, first trimester (principal); Z13.1 Encounter for screening for diabetes mellitus; Z3A.00 Weeks of gestation of pregnancy not specified
CPT/HCPCS: 36415; 82950; 85025; 86703; 86780; 86850; 86900; 86901

== ENCOUNTER 2024-12-01 08:55 | Outpatient (CLI) | payer OTHER, SELFPAY ==
[2024-12-01 09:04] VITALS: BMI 31.5
[2024-12-01] MEDS: Betamethasone/Betamethasone 30 MG/5 ML Vial 12 MG IM (09:36)
[2024-12-01 10:16] VITALS: RESP 16; TEMP 37.1; O2SAT 99
[2024-12-01 10:17] VITALS: BP 118/73; PULSE 100
[2024-12-01 11:02] VITALS: PULSE 72; O2SAT 98
--- NOTE | 2024-12-01 12:37 | OB.TRI.PN_ITS ---
Progress Notes Date of Service: 12/01/24 Progress Note: at 33.4 weeks for IM injection of celestone 12mg for planned at 34 weeks at [facility]. Charges/Coding Procedures Urinary/Genital 52xxx-59xxx: No Charge Multi Select Codes Urinary/Genital Urinary/Genital CPT Codes: No Charge Assessment & Plan (1) Placenta accreta: COMMENT: patient has appt with [facility] to discuss (2) Anti-D antibodies present during : COMMENT: Recent rhogam. titer 07/07: (3) Patient desires vaginal after section (): (4) Family history of defect: COMMENT: FOB niece with multiple defects- facial, heart. (5) Rh negative status during : COMMENT: rhogam at 28 weeks and PRN. (6) History of : COMMENT: breech (7) History of gestational hypertension: COMMENT: baseline labs, 81 mg asa recommended. (8) : COMMENT: NIPT low risk (9) Supervision of high risk in first trimester: COMMENT: PRR JOSE 01/15/25 PC Radha. : Riccardo (10) Anxiety: COMMENT: start citalopram
== END 2024-12-01 09:41 | disposition home or self-care (01) ==
LOC: WPOUT 08:59 → WP 08:59
PROVIDERS: PCP Internal Medicine; Referring Provider Advanced Practice Midwife; Visit Provider Advanced Practice Midwife
DX: O43.213 Placenta accreta, third trimester (principal); O99.343 Other mental disorders complicating pregnancy, third trimester; F41.9 Anxiety disorder, unspecified; Z3A.33 33 weeks gestation of pregnancy
CPT/HCPCS: 96372; 99221; G0378; J0702

== ENCOUNTER 2024-12-02 08:45 | Outpatient (CLI) | payer OTHER, SELFPAY ==
[2024-12-02 09:00] VITALS: BMI 31.1
[2024-12-02 09:13] VITALS: BP 110/61; PULSE 84
[2024-12-02] MEDS: Betamethasone/Betamethasone 30 MG/5 ML Vial 12 MG IM (09:14)
--- NOTE | 2024-12-02 23:00 | OB.TRI.HP_ITS ---
HPI - General HPI Narrative JEANIE FALCON, is a 29 F who presents for celestone injection only. She has a known previa and accreta and will be delivered in [place] tomorrow at 34 weeks 0 days gestation Maternal Data Information JOSE Calculator Estimated Delivery Date Method Current WG Current Estimate 01/15/25 LMP (Certain) 34w 0d Other Estimates 01/15/25 Ultrasound #1 34w 0d PFSH PFSH Medical History Wenckebach's phenomenon Gestational hypertension Family history of hearing loss at age younger than 7 years delivery delivered Breech presentation Choroid plexus cyst of fetus Rh negative status during Seasonal allergies Anxiety Home Medications ?Medication ?Instructions ?Recorded ?Last Taken ?Type citalopram 20 mg tablet (Celexa) 20 mg PO DAILY #90 ta bs 05/21/24 Unknown Rx PNV 153-FA 400 mcg-om3 35 mg-dha tab PO 06/03/24 Unkno wn History 25 mg-epa 5 mg-fish oil chew tablet breast pump #1 ea 10/02/24 Unknown Rx Allergy/AdvReac Type Severity Reaction Status Date / Time animal dander Allergy unknown Verified 12/01/24 09:03 Family History Grandmother Breast cancer Grandfather Myocardial infarction Father Hypertension Hyperlipidemia Surgical History History of H/O shoulder surgery Social History adopted: No household members: spouse and children housing: house number of children: 1 current occupational status: employed 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 current occupational exposures/hazards: No pets and animals: Yes (Avoid litterbox) pets and animals: cat(s) history of recent travel: Yes ( -May) out of state: Yes out of country: No sexually active: Yes Smoking Status: Never smoker Electronic Cigarette Use: not used alcohol intake: current alcohol intake frequency: holidays/special occasions only details: social- not while substance use type: does not use well-balanced diet: daily or most days caffeine: Yes Type: coffee Number of servings: 2 eating out: 1-3 times/week during the past year weight has: remained stable what type of physical activity do you participate in: none svetlana/jehovah's witness: Jewish seatbelt use: always do you feel safe at home: Yes additional social history: - Riccardo Patient works for [employer] History 2 Elective abortions Hx Para 1 Spontaneous abortions Hx # Term Pregnancies Ectopic pregnancies Hx # Pregnancies Multiple births # of living children 1 Past Pregnancies Del. Date Name GA/Weeks Outcome Route Bth Weight Gen Labor Lgth Anesthesia Del Locatn Provider FOB 07/28/22 Radha 37 live - full term 4lbs 12oz Female spinal [facility] Liss Gu Delivery Date: 07/28/22 Last Updated by: Brenda Early see problem list for complications, and LTCS breech TN 37 Visit Details Expected Delivery Route/Plan tolac patient counseled regarding risks/benefits of trial of labor versus repeat . ACOG/uptodate education given to patient. [] % likelihood of success per calculator TOLAC consent form signed: [] Labor Preferences- CB/BF classes: [] labor support person: [] labor intervention preferences: [] pain management options preferred: [] cut cord/dad catch: [] : [] PP control planned: [] discussed possible routes of delivery and associated risks: [] special requests: [] Plans Covid status: [] Flu vaccine: [] Tdap vaccine: [] Rhogam: [] LARC form signed: [] Problem list reviewed and updated with the most current plan of care details and appropriate orders placed. Relevant counseling for the gestational age provided. Continue routine care and follow up unless otherwise noted in visit notes/problem list details OB Flowsheet Initial Weight: Not Recorded Date -?-?-?-?-?-?-?-?-?-?-?-?- EGA Weight BP Urine Prot -?-?-?-?-?-?-?-?-?-?-?-?- Glucose FHR FuHt Pres Dilation -?-?-?-?-?-?-?-?-?-?-?-?- Effaced St Visit Note 06/04/24 -?-?-?-?-?-?-?-?-?-?-?-?- 7w 6d 154 lb 6 oz 122/68 -?-?-?-?-?-?-?-?-?-?-?-?- 156 -?-?-?-?-?-?-?-?-?-?-?-?- SM- CRL 1.75 con s with LMP 06/27/24 -?-?-?-?-?-?-?-?-?-?-?-?- 11w 1d 153 lb 154 lb 132/82 -?-?-?-?-?-?-?-?-?-?-?-?- 150 -?-?-?-?-?-?-?-?-?-?-?-?- SM- no vb crampi ng nausea stable 07/07/24 -?-?-?-?-?-?-?-?-?-?-?-?- 12w 4d 153 lb 6 oz 119/76 Nega tive -?-?-?-?-?-?-?-?-?-?-?-?- Negative 160 -?-?-?-?-?-?-?-?-?-?-?-?- MH-No Vb,LOF. Br ief Us to confirm FHT. Nausea persists but more manageable. Flu vaccine. Anti D titer today. 08/07/24 -?-?-?-?-?-?-?-?-?-?-?-?- 17w 0d 158 lb 2 oz 124/74 Nega tive -?-?-?-?-?-?-?-?-?-?-?-?- Negative 157 -?-?-?-?-?-?-?-?-?-?-?-?- JV- nausea is im proved. no complaints. has anatomy scan with mfm scheduled. Anti-D titer too low to quantify. Patient reassured. 08/18/24 -?-?-?-?-?-?-?--?-?-?-?-?- 18w 4d 153 lb 6 oz 124/82 -?-?-?-?-?-?-?-?-?-?-?-?- -?-?-?-?-?-?-?-?-?-?-?-?- nurse visit for back pain relieved with urination. ua ordered and renal ultrasound ordered. 09/01/24 -?-?-?-?-?-?-?-?-?-?-?-?- 20w 4d 163 lb 2 oz 132/75 Nega tive -?-?-?-?-?-?-?-?-?-?-?-?- Negative 140 -?-?-?-?-?-?-?-?-?-?-?-?- SM- no vb lof di scussed diagnoses, and planned fu tomorrow 10/02/24 -?-?-?-?-?-?-?-?-?-?-?-?- 25w 0d 167 lb 4 oz 117/77 Nega tive -?-?-?-?-?-?-?-?-?-?-?-?- Negative 155 25 -?-?-?-?-?-?-?-?-?-?-?-?- JV- no complaint s. has one bh contraction a day. Has appt with [facility]fm next week for follow up scan to know more about accreta 10/20/24 -?-?-?-?-?-?-?-?-?-?-?-?- 27w 4d 170 lb 2 oz 121/79 Nega tive -?-?-?-?-?-?-?-?-?-?-?-?- Negative 145 -?-?-?-?-?-?-?-?-?-?-?-?- SM- no vb lof go od fm no regular ctx SM- no vb lof good fm no reg ular ctx discussed US sunday and considering second opinion depending on follow up with [facility] 11/06/24 -?-?-?-?-?-?-?-?-?-?-?-?- 30w 0d 175 lb 130/83 Negative -?-?-?-?-?-?-?-?-?-?-?-?- Negative 147 32 -?-?-?--?-?-?-?-?-?-?-?-?- JV- no complaint s today. patient met with Dr. Rudolph yesterday and reassured her of the process of the possible C-hyst. Has appt next at [address] Streeter. 11/19/24 -?-?-?-?-?-?-?-?-?-?-?-?- 31w 6d 178 lb 2 oz 134/85 Nega tive -?-?-?-?-?-?-?-?-?-?-?-?- Negative 140 32 -?-?-?-?-?-?-?-?-?-?-?-?- SM- no vb lof go od fm irregular ctx. RUBEN today and meeting with Dr Streeter. US today Assessment & Plan (1) Placenta accreta: COMMENT: patient has appt with [facility] to discuss (2) Anti-D antibodies present during : QUALIFIERS: Fetus number: single or unspecified fetus Trimester: second trimester Qualified Code(s): O36.0120 - Maternal care for anti-D [Rh] antibodies, second trimester, not applicable or unspecified COMMENT: Recent rhogam. titer 07/07: (3) Patient desires vaginal after section (): (4) Family history of defect: COMMENT: FOB niece with multiple defects- facial, heart. (5) Rh negative status during : QUALIFIERS: Trimester: second trimester Qualified Code(s): O26.892 - Other specified related conditions, second trimester; Z67.91 - Unspecified blood type, Rh negative COMMENT: rhogam at 28 weeks and PRN. (6) History of : COMMENT: breech (7) History of gestational hypertension: COMMENT: baseline labs, 81 mg asa recommended. (8) : QUALIFIERS: Weeks of gestation: 31 weeks Qualified Code(s): Z3A.31 - 31 weeks gestation of COMMENT: NIPT low risk (9) Supervision of high risk in first trimester: COMMENT: PRR JOSE 01/15/25 PC Radha. : Riccardo (10) Anxiety: COMMENT: start citalopram PLAN: Plan 2nd dose of celestone today and then dc to home
== END 2024-12-02 09:20 | disposition home or self-care (01) ==
LOC: WPOUT 08:56 → WP 08:57
PROVIDERS: PCP Internal Medicine; Referring Provider Obstetrics & Gynecology; Visit Provider Obstetrics & Gynecology
DX: O43.213 Placenta accreta, third trimester (principal); O99.343 Other mental disorders complicating pregnancy, third trimester; F41.9 Anxiety disorder, unspecified; O09.93 Supervision of high risk pregnancy, unspecified, third trimester; O34.219 Maternal care for unspecified type scar from previous cesarean delivery; O26.893 Other specified pregnancy related conditions, third trimester; Z67.91 Unspecified blood type, Rh negative; Z3A.34 34 weeks gestation of pregnancy; Z87.59 Personal history of other complications of pregnancy, childbirth and the puerperium; Z79.899 Other long term (current) drug therapy
CPT/HCPCS: 96372; 99221; G0378; J0702

== ENCOUNTER → 2024-12-15 | Outpatient (CLI) | payer OTHER, SELFPAY ==
--- NOTE | 2024-12-15 08:15 | RAD_ITS ---
PROCEDURE: CYSTOGRAPHY MIN 3 VIEWS 12/15/2024 REASON FOR EXAM: Incidental intraoperative CYSTOTOMY TECHNIQUE: See below. COMPARISON: None available. FINDINGS: Informed consent was obtained. Patient arrived in the radiology department Rico catheter already having placed. Urinary bladder was instilled under fluoroscopic visualization with 3 cc Cystografin. Multiple views spot fluoroscopic images were recorded and variable degrees of filling to capacity about 400 cc. There is no evidence of vesicoureteral reflux. There no evidence loss of integrity urinary and no area postoperative diverticulum other irregularity was seen. The patient tolerated the procedure well and was discharged home directly. RAD/Cystography min 3 Views IMPRESSION: Negative cystogram. Reading Location: [place] [id number]
== END | disposition home or self-care (01) ==
LOC: RAD 08:08
PROVIDERS: PCP Internal Medicine; Referring Provider Obstetrics & Gynecology; Visit Provider Obstetrics & Gynecology
DX: Z93.50 Unspecified cystostomy status (principal)
CPT/HCPCS: 51600; 74430; Q9967